=== PATIENT | female | born 1980 | race Two or more races ===

== ENCOUNTER 2022-12-25 20:24 | Emergency (ER) | payer OTHER ==
[~2022-12-25] VITALS: Ht 167.6 cm; Wt 95.0 kg
[2022-12-25] MEDS ORDERED: HYDROCHLOROTHIAZIDE 25 MG TABLET PO ONE (22:15)
[2022-12-25] MEDS ORDERED: PHENYLEPHRINE HCL 1% 15 ML NASAL SPRAY NASAL ONE (22:15)
[2022-12-26 00:28] VITALS: BP 162/95
== END 2022-12-26 00:30 | disposition home or self-care (01) ==
LOC: EMS 20:25
DX: R04.0 Epistaxis (principal); I10 Essential (primary) hypertension
CPT/HCPCS: 99283